=== PATIENT | male | born 1950 | race Caucasian/White ===

== ENCOUNTER 2024-07-09 06:08 | Day surgery (SDC) | payer MEDICARE, OTHER, SELFPAY ==
[2024-07-09] VITALS (17 sets, daily range): BP systolic 99–147; BP diastolic 57–91; PULSE 56–70; RESP 16–23; TEMP 36.1–37.1; O2SAT 96–99; BMI 29.7
--- OUTSIDE RECORDS SUMMARY | 2024-07-09 06:12 | XMS_ITS | Clinical Summary ---
Author Organization [facility] Address [place], [place] [address] Care Team Providers Care Plating Operator Name Role Phone Pcp, No Primary Care Provider Unavailabl e Allergies No known active allergies Medications Medication Sig Dispensed Refills Start Date End Date Status multivit-minerals /folic acid (ADULT ONE DAILY MULTIVITAMIN ORAL) Take 1 Tab by mouth once daily. Active glucosamine/msm/c hondroitin A (GLUCOSAMINE-WAI DR-MSM ORAL) Take 2 Tabs by mouth once daily. Glucosamine 750 Active acetaminophen (TYLENOL EXTRA STRGTH) 500 mg tabletIndications :Status post total replacement of left hip Take 2 tablets by mouth 3 times daily. Max acetaminophen dose: 4000mg in 24 hrs. 100 tablet 1 04/20/2020 Active creatine, bulk, 100 % powd As directed. Active MAGNESIUM ASPARTATE HCL ORAL Take by mouth. Active polyethylene glycol-electrolyt e (GOLYTELY) 236-22.74-6.74 -5.86 gram suspensionIndicat ions:Encounter for screening colonoscopy Drink 2 liters the day before colonoscopy and 2 liters 6 hours before colonoscopy appointment 4000 mL 04/07/2024 4 Discontinu ed(*Med complete/R egimen complete/L evel of care change) Active Problems Problem Noted Date Diagnosed Date Arthritis of right hip 04/06/2024 Overview (04/06/2024): March 2024: right hip ultrasound guided cortisone injection. History of coronary artery bypass graft 03/15/20 Overview (03/15/2024): 1993: reported 7 vessel CABG in [place]. No symptoms since. Declines statin. 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 Primary osteoarthritis of left hip 04/19/2020 Encounters Date Type Department Care Team Description 07/02/2024 Orders Only [facility] [place] [place] [address] Uli Dowling MD 2 scans: (2-Ord) [facility]D-EKG-06/30/24 06/30/2024 3:30 PM CDT Office Visit [facility] [place] [facility] [place] [address] Uli Dowling MD Preoperative Exam (DOS: 07/09/2024/RIGHT Hip Replacement/[facility]/Dr Lanette Espinal) 06/30/2024 Travel 04/24/2024 2:40 PM CDT Office Visit [facility] [place] [facility] [place] [address] Uli Dowling MD Musculoskeletal Problem (Follow-up RIGHT Hip injection/Groin pain/Did not help at all) 04/24/2024 Travel 04/21/[address] [place] [address] Uli Dowling MD Questions (hip injection) 04/15/2024 11:30 AM CDT Office Visit [address] [place] [address] Mason Virgen MD Procedure (colonoscopy) 04/15/2024 Travel 04/15/[address] [address] Mason Virgen MD Appointment 04/09/[address] [address] Mason Virgen MD Appointment Reminder (Colonoscopy) from Last 3 Months Immunizations Name Administration Dates Next Due COVID-19 vaccine (Conergy NTNewsWhip 30mcg/0.3mL) MALKA LUU 10/20/2021,12/23/2020,12/02/2020 Influenza, High-dose Quadriv alent Inactivated 07/29/2021 Family History Medical History Relation Name Comments No Known Problems Daughter 1 No Known Problems Daughter 2 Heart Disease Father Other Father broken hip x2 Diabetes Maternal Grandfather Diabetes Maternal Grandmother Heart Disease Mother Diabetes Sister 1 Hui Diabetes Sister 2 Orquidea Diabetes Sister 3 Rosalinda Heart Disease Sister 3 Rosalinda Relation Name Status Comments Daughter 1 Alive Daughter 2 Alive Father (Age 89) Maternal Grandfather Maternal Grandmother Mother Paternal Grandfather Paternal Grandmother Sister 1 Hui Alive Sister 2 Orquidea Alive Sister 3 Rosalinda Alive Social History Tobacco Use Types Packs/Day Years Used Date Smoking Tobacco: Never Smokeless Tobacco: Never Tobacco Cessation:Counseling Given: Yes Alcohol Use Standard Drinks/Week Comments Not Currently 0 (1 standard drink = 0.6 oz pur e alcohol) none for 13 years PHQ-2 Answer Date Recorded PHQ-2 TOTAL SCORE 0 03/14/2024 Social Connections Answer Date Recorded Frequency of Communication with Friends and Fami ly 0 03/14/2024 Financial Resource Strain Answer Date R ecorded Difficulty of Paying Living Expenses 3 03/14/2024 Difficulty of Paying Living Expenses Not on file 03/14/2024 Food Insecurity Answer Date Recorded Worried About Running Out of Food in the Last Ye ar 1 03/14/2024 Transportation Needs Answer Date Record ed Lack of Transportation (Medical) 1 03/14/2024 Housing Stability Answer Date Recorded Unable to Pay for Housing in the Last Year 1 03/14/2024 Sex and Gender Information Value Date Recorded Sex Assigned at Not on file Gender Identity Not on file Sexual Orientation Not on file Obstetrics History Last Filed Vital Signs Vital Sign Reading Time Taken Comments Blood Pressure 133/70 06/30/2024 3:37 PM CDT Pulse 74 06/30/2024 3:37 PM CDT Temperature 36.4 ??C (97.5 ??F) 04/04/2024 9:01 AM CD T Respiratory Rate 16 04/15/2024 12:35 PM CDT Oxygen Saturation 98% 06/30/2024 3:37 PM CDT Inhaled Oxygen Concentration - - Weight 85 kg (187 lb 6.4 oz) 06/30/2024 3:37 PM CDT Height 168.9 cm (5' 6.5) 06/30/2024 3:37 PM CDT Body Mass Index 29.79 06/30/2024 3:37 PM CDT Plan of Treatment Health Maintenance Due Date Last Done Comments Tdap 1962 Tetanus booster 1971 Zoster (shingles) series for age 50+ (1 of 2) 2001 Pneumococcal series for age 65+ (1 of 1 - PCV) 2016 COVID-19 vaccine series ( season) 2024 10/20/2021, 12/23/2020, 12/02/2020 Influenza for age 65+ 06/01/2024 07/29/2021 Depression screening for age 12+ 03/14/2025 03/14/2024, 03/14/2024, 03/14/2024, Additional history exists Medicare Wellness for age 65+ 03/15/2025 03/14/2024 BMI (ht and wt on same day) for age 18+ 06/30/2025 06/30/2024, 03/14/2024, 04/07/2020 Lipids for age 45-75 03/14/2029 03/14/2024, 04/07/20 Colonoscopy through age 75 04/15/203404/15, 04/15/2024, 04/15/2024, Additional history exists Hepatitis C screening for ag e 18-79 Completed 04/07/2020 Medical Devices Implanted Type Area Acid Recovery Operator Device Identifier Shelf Expiration Date Model / Serial / Lot [id number] - [id number] Implanted:Qty: 1 on 04/19/2020 by Volodymyr Sandy MD at [facility] Total Joint Left: Hip [employer] 12/18/2024 [id number] / / [id number] Description:hex Dome hole pl ug L351-96-18h - [id number] Implanted:Qty: 1 on 04/19/2020 by Volodymyr Sandy MD at [facility] Total Joint Left: Hip [employer] 12/02/2023 702-11-56 F / / [id number] Description:trident II Clust erhole WISEMAN Acetabular Shell [id number] - [id number] Implanted:Qty: 1 on 04/19/2020 by Volodymyr Sandy MD at [facility] Total Joint Left: Hip [employer] 10/20/2024 623-00-36 F / / [id number] Description:Trident x3 o deg ree polyethylene insert [id number] - [id number] Implanted:Qty: 1 on 04/19/2020 by Volodymyr Sandy MD at [facility] Total Joint Left: Hip [employer] 11/29/2024 [id number] / / [id number] Description:Accolade II 127d egree Neck Angle Hip Stem Z9216-4-639 - [id number] Implanted:Qty: 1 on 04/19/2020 by Volodymyr Sandy MD at [facility] Total Joint Left: Hip [employer] 03/18/2025 6570-0-13 6 / / [id number] Description:Biolox delta cer amic V40 Femoral head Explanted Type Area Acid Recovery Operator Device Identifier Shelf Expiration Date Model / Serial / Lot Pin Bradley Threaded [id number] [id number] William - [id number] Explanted:Qty: 1 on 04/19/2020 by Volodymyr Sandy MD at [facility] Total Joint Left: Hip [employer] 04/19/2020 261-10-04 # / / NA Procedures Procedure Name Priority Date/Time Associated Diagnosis Comments EKG 12 LEAD Routine 07/02/2024 3:10 PM CDT Preoperative examination History of coronary artery bypass graft MD READING EKG - NO CHARGE, COMP ONLY Routine 07/02/2024 3:08 PM CDT Preoperative examination History of coronary artery bypass graft HEMOGLOBIN Routine 06/30/2024 4:38 PM CDT Preoperative examination PATH TISSUE EXAM Routine 04/15/2024 12:1 2 PM CDT Screen for colon cancer Polyp of colon, unspecified part of colon, unspecified type Diverticulosis of large intestine without hemorrhage COLONOSCOPY SCREENING Routine 04/15/2024 11:23 AM CDT Screen for colon cancer COLONOSCOPY 04/15/2024 10:57 AM CDT LIPID PANEL W REFLEX MEASURED LDL Routine 03/14/2024 10:59 AM CDT Screening cholesterol level ANTI HCV Routine 04/07/2020 10:55 AM CDT Encounter for hepatitis C screening test for low risk patient from Last 3 Months or Most Recently Relevant to Health Maintenance Results * EKG 12 LEAD (07/02/2024 3:10 PM CDT) Uli Dowling MD EKG ORD * MD READING EKG - NO CHARGE, COMP ONLY (07/02/2024 3:08 PM CDT) Uli Dowling MD PB - PROVIDER DANILO DINGS * HEMOGLOBIN (06/30/2024 4:38 PM CDT) HEMOGLOBIN 14.7 13.2 - 17.1 g/dL [facility] Blood BLOOD SPECIMEN / Unknown 06/30/2024 4:38 PM CDT 06/30/2024 4:39 PM CDT Uli Dowling MD HEMATOLOGY [employer] [facility] [address] [place] [address], [facility] [address] [place] [address] * PATH TISSUE EXAM (04/15/2024 12:12 PM CDT) Case Report Pathology Report ?Case: [id number] ? Authorizing Provider: ??Mason Virgen MD ?? Collected: ? 04/15/2024 1212 ? Ordering Location: ? [facility] ?? Received: ?04/15/2024 1605 ? Clinic ? Pathologist: ? Aryan Muñoz MD ? Specimen: ?Descending Colon Polyp ? 04/18/2024 4:57 PM CDT [facility] Final Diagnosis A) COLON, DESCENDING, POLYPECTOMY: 1. Hyperplastic polyp 04/18/2024 4:57 PM CDT [facility] Clinical Information Screening colonoscopy. 04/18/2024 4:57 PM CDT [facility] Gross Description A) Received in formalin is a narvaez mucosal fragment measuring 2 mm in greatest dimension, which is entirely submitted in one cassette. It is labeled with the patient's name and designated descending colon polyp. Eron Cordero 04/16/2024 10:10 AM 04/18/2024 4:57 PM CDT [facility] Microscopic Description The final diagnosis is based on microscopic examination of appropriate sections of all specimens. Deeper levels were examined on block A1. 04/18/2024 4:57 PM CDT [facility] Additional Information Interpreted at [facility], Central Laboratory - [address] [address] 04/18/2024 4:57 PM CDT [facility] Other (Descending Colon Polyp) Non-Blood / Unknown 04/15/2024 12:12 PM CDT 04/15/2024 4:05 PM CDT Mason Virgen MD PATHOLOGY/[facility]OLOG [facility] [address] [place] [address], [place] * COLONOSCOPY (04/15/2024 10:57 AM CDT) 04/15/2024 10:5 7 AM CDT Narrative Transcriptions Mason Virgen MD - 04/15/2024 12:26 PM CDT Patient Name: Dc Hopkins Procedure Date: 04/15/2024 Gender: Male Date of : 1950 Admit Type: Outpatient Procedure: Colonoscopy Proceduralist: Mason Virgen MD , Montse Sotelo, RN (Nurse), Nay Cruz, RN (Nurse) Referring MD: Uli Dowling Indications/Pre-Op Diagnosis: Screening for colorectal malignant neoplasm, Last colonoscopy: November 2011 Medications: Fentanyl 100 micrograms IV, Midazolam 3 mgIV, The level of sedation administered wasmoderate Procedure Description: The patient had risks, benefits and alternatives explained to andgave informed consent. The patient had a stable cardiopulmonary status and judged an adequate candidate for conscious sedation. The endoscope [id number] was passed through the anus andadvanced to the cecum, identified by appendiceal orifice and ileocecal valve.The colonoscopy was performed without difficulty. The patient toleratedthe procedure well. The quality of the bowel preparation was good. The ileocecal valve, appendiceal orifice, and rectum were photographed. Complications: No immediate complications. Estimated Blood Loss & Specimen: Estimated blood loss: none. Specimen collected - Yes and sent to Laboratory Findings: The perianal and digital rectal examinations were normal. A 2 mm polyp was found in the descending colon. The polyp wassessile. The polyp was removed with a cold biopsy forceps. Resection and retrieval were complete. A few small-mouthed diverticula were found in the ascending colon. The exam was otherwise without abnormality. Impressions/Post-Op Diagnosis: - One 2 mm polyp in the descending colon, removed with a cold biopsy forceps. Resected and retrieved. - Diverticulosis in the ascending colon. - The examination was otherwise normal. Recommendation: - Patient has a contact number available for emergencies. The signsand symptoms of potential delayed complications were discussed with the patient. Return to normal activities tomorrow. Written discharge instructions were provided to the patient. - Resume previous diet. - Continue present medications. - Await pathology results. - Repeat colonoscopy date to be determined after pending pathology results are reviewed. Moderate Sedation: A time out was performed before the procedure. Moderate (conscious) sedation was administered by the endoscopy nurse and supervised bythe endoscopist. The following parameters were monitored: oxygensaturation, heart rate, blood pressure, EKG, CO2, respiratory rate, adequacy of pulmonary ventilation and reponse to care. Please refer to the patient's medical record flowsheets and nursing notes for moderate sedation details. Total physician intraservice time was 16 minutes. Mason Virgen MD 04/15/2024 12:26:36 PM This report has been signed electronically. Note Initiated On: 04/15/2024 10:57 AM Procedure Code(s): --- Professional --- 70851, Colonoscopy, flexible; with biopsy, single or multiple Diagnosis Code(s): --- Professional --- Z12.11, Encounter for screening formalignant neoplasm of colon D12.4, Benign neoplasm of descending colon K57.30, Diverticulosis of large intestine without perforation or abscess withoutbleeding CPT copyright 2022 [employer]. All rights reserved. The codes documented in this report are preliminary and upon microsoft dynamics ax consultant reviewmay be revised to meet current compliance requirements. Scope In: 11:58:51 AM Scope Withdrawal Time 0 hours 9 minutes 16 seconds Scope Out: 12:12:42 PM Mason Virgen MD PROCEDURE ORD * (ABNORMAL) LIPID PANEL W REFLEX MEASURED LDL (03/14/2024 10:59 AM CDT) CHOLESTEROL,TOTAL 235(H) 100 - 199 mg/dL 03/14/2024 7:56 PM CDT [facility] Comment: Cholesterol, Total Reference Ranges Desirable <200 mg/dL Borderline 200-239 mg/dL High >=240 mg/dL TRIGLYCERIDES 65 <150 mg/dL 03/14/2024 7:56 PM CDT [facility] TR[facility] LAB[facility] HDL CHOLESTEROL 71 >40 mg/dL 7:56 PM CDT [facility] NON-HDL CHOLESTEROL 164(H) <145 mg/dl 03/14/2024 7:56 PM CDT [facility] CHOL/HDL RATIO 3.31 <4.50 03/14/2024 7:56 PM CDT [facility] LDL CHOLESTEROL 151(H) <=130 mg/dL 03/14/2024 7:56 PM CDT [facility] VLDL CHOLESTEROL 13 <=30 mg/dL 03/14/2024 7:56 PM CDT [facility] TR[facility] PROVIDER ORDERED STATUS FASTING 03/14/2024 7:56 PM CDT [facility] Blood BLOOD SPECIMEN / Unknown Venipuncture / Unknown 03/14/2024 10:59 AM CDT 03/14/2024 10:59 AM CDT Uli Dowling MD CHEMISTRY [facility] [address] [place] [address], * ANTI HCV (04/07/2020 10:55 AM CDT) HEPATITIS C ANTIBODY Non-React selina Non-React selina 04/07/2020 6:13 PM CDT [facility] Comment:Antibodies to HCV no t detected; does not exclude the possibility of exposure to HCV. Blood BLOOD SPECIMEN / Unknown Venipuncture / Unknown 04/07/2020 10:55 AM CDT 04/07/2020 10:58 AM CDT Emmie FONSECA SEND OUTS Performing Organization Address City/[facility]/ZIP Co de Phone Number [facility] [address] [place] [address], from Last 3 Months or Most Recently Relevant to Health Maintenance Advance Directives * Full Code (Latest Code Status on File) Date Activated Date Inactivated Comments 04/19/2020 5:45 AM 04/20/2020 4:19 PM Care Teams Plating Operator Relationship Specialty Start Date End Date Pcp, No . PCP - General 06/18/19
[2024-07-09] MEDS: ACETAMINOPHEN 500 MG TABLET 1000 MG PO (06:30)
[2024-07-09] MEDS: OXYCODONE (CR) 10 MG TAB.ER.12H PO (06:30)
[2024-07-09] MEDS: SODIUM CHLORIDE 0.9 % (FLUSH) 10 ML SYRINGE IVF ×2 (06:55→07:15)
[2024-07-09] MEDS: LACTATED RINGERS 1000 ML 1,000 ML 100 ML IV (06:55)
--- NOTE | 2024-07-09 07:06 | W.PM.H&PU ---
History & Physical Update History & Physical Update H&P Reviewed and patient assessed: No changes noted
[2024-07-09] MEDS: fentaNYL 100 MCG/2 ML inj IVP (07:15)
[2024-07-09] MEDS: MIDAZOLAM HCL 1 MG/ML inj IVP (07:15)
--- NOTE | 2024-07-09 07:22 | SUR.PREOP ---
TIME?OUT:?0714 PT/RN/MDA?VERIFICATION?OF?SURGICAL?SITE,?PROCEDURE,?AND?CONSENT OBTAINED?PRIOR?TO?INVASIVE?PROCEDURE.
--- NOTE | 2024-07-09 07:30 | CRLHL7_ITS ---
For Patients: As a result of the Cures Act, medical imaging exams and procedure reports are released immediately into your electronic medical record. You may view this report before your referring provider. If you have questions, please contact your health care provider. Indication: Hip replacement surgery Technique: AP hip fluoroscopic image. Fluoroscopy time 37.4 seconds. Findings/Impression: Hardware from a right total hip arthroplasty is in satisfactory position. Dictated by Pernell Greer MD @ 07/09/2024 10:37:40 AM (Electronically Signed)
[2024-07-09] MEDS: CEFAZOLIN 2 GM in 0.9 % SODIUM CHLORIDE Mini-bag 100 ML IVPB (07:40)
[2024-07-09] MEDS: TRANEXAMIC ACID 100 MG/ML INJ 1000 MG IV (07:45)
--- NOTE | 2024-07-09 08:37 | W.PM.NB ---
Nerve Block Nerve Block Time Seen by Provider: 07:18 Date Seen: 07/09/24 Type of block requested by surgeon for post-operative analgesia: ALEX/LFCN Side: right Time out performed: Yes Verification of patient name: Yes Verification of date of : Yes Site marking: site marked Name of person performing procedure: Luis Alfredo Continuous monitoring Was continuous monitoring of O2 sat, B/P, food production associate, recorded every 15 minutes?: Yes Procedure Checklist: sterile prep, needles and gloves Ultrasound guided. Images saved: Yes Medications given in 5ml increments after negative aspiration: Marcaine %: 0.25 mL: 25 Precedex (mcg): 25 Patient tolerated procedure well: Yes Additional comments: Needle noted below psoas tendon needle noted adjacent to LFCN Block Charges Block Charge (with Pro Fee): Other Periph Nerve Block Use of Ultrasound Machine for Block: Yes- US Guidance/pain block
--- NOTE | 2024-07-09 08:38 | W.ANESCHARGE ---
Anesthesia Charges Start Date/Time Anesthesia Start Date: 07/09/24 Anesthesia Start Time: 07:31 Stop Date/Time Anesthesia Stop Date: 07/09/24 Anesthesia Stop Time: 09:55 Summary Extremes of Age - Over 70 or under 1: MDA
--- NOTE | 2024-07-09 09:09 | P.ORPRC_ITS ---
Procedure Note Date of procedure: 07/09/24 Procedure: PREOPERATIVE DIAGNOSIS: 1. Right hip osteoarthritis, severe, primary POSTOPERATIVE DIAGNOSIS: 1. Right hip osteoarthritis, severe, primary PROCEDURE: 1. Right total hip arthroplasty-anterior approach 2. 01775 - intraoperative fluoroscopy up to 1 hour. SURGEON: Domingo Espinal MD. SUPERVISOR CRACK OFF: Wojciech Trevino PA-C; DAHIANA Franz - Of note, a skilled certified surgical first assistant was critical for this case to aid in patient positioning, tissue retraction, limb manipulation/positioning, and closure. ANESTHESIA: General endotracheal anesthetic EBL: 200 mL IMPLANTS: DePuy J&J uncemented total hip [place] cup size 54, hole eliminator, +4 neutral liner Actis stem, standard offset, size 6 +5 mm ceramic 36 mm head COMPLICATIONS: None evident INDICATIONS: The patient is a pleasant 73-year-old male who has experienced severe right hip pain and difficulty bearing weight. Workup included x-rays which revealed severe osteoarthrosis in the hip. Given the deformity, the dysfunction, and the pain, as well as the failure of nonoperative management, recommendation was made for surgery. FINDINGS: Full-thickness chondral loss diffusely throughout the femoral head. To a lesser degree acetabular chondromalacia. Moderate effusion upon entering the joint. DESCRIPTION OF PROCEDURE: Following a thorough discussion of risks, benefits, and alternatives consent was obtained and the right hip was marked. The patient was brought to the operating room and placed supine on the operating table. Induction of anesthesia was undertaken. 2 g IV Ancef and 1 g tranexamic acid was administered within 1 hr of incision preoperatively. Proper time-out was performed identifying proper patient, site, procedure. The operative extremity was prepped and draped in the appropriate sterile fashion using ChloraPrep after the patient was positioned on the [place] table with head in neutral alignment and all bony prominences well padded. C-arm fluoroscopic imaging was utilized to confirm proper pelvis rotation and position, and to get true AP films of both the contralateral left, and the affected right hip. This is for comparison. A longitudinal incision was made starting approximately 1 cm distal to the ASIS, and 3-4 cm lateral. The incision was extended distally aiming toward the lateral border the patella. Sharp incision through skin and bovie cautery through the subcutaneous tissue allowed identification of the TFL fascia. This was sharply divided, and the fascia bluntly released from the muscle fibers as we dissected medial. Upon coming to the medial border, we were able to retract the TFL laterally, and penetrated the deeper fascia and identify the crossing circumflex vessels. These were ligated/cauterized. The rectus was elevated from the capsule, and retractors placed laterally and medially along the femoral neck to help with visualization of the capsule. We then performed an inverted T capsulotomy. The capsule was tagged for later repair. Retractors were placed inside the capsule. The femoral neck was visualized after releasing medially down to the lesser trochanter, along the saddle laterally, and up onto the acetabulum. The femoral neck cut was made in line with our preoperative templating. The head was removed in a single piece, and sized. We turned our attention to acetabular preparation. Initially, the labrum was resected from around the perimeter, the pulvinar was excised, allowing us to visualize the false wall. We started the reaming with a 43 mm reamer. This was medialized down to the true wall. We then enlarged our reamers sequentially up to one size less than the selected cup size. We trialed at the same size and found it to have an excellent fit. The selected cup was then opened, inserted, and impacted in line with the goal of 40? of abduction, and 20-25? of ante version. This was confirmed on C-arm fluoroscopic imaging to be in the appropriate/goal position. Once the cup was placed we placed a hole eliminator and a liner consistent with preop planning. Attention was turned to the femoral preparation. The limb was extended, externally rotated, and adducted. The posteromedial capsule was released, as retractors were placed allowing excellent access to the proximal femur. Initially a box feeder was followed by canal finder followed by various broaches. We broached sequentially up to the size noted above, found it to have excellent rotational control, and trialing various heads and necks, revealed that appropriate neck offset, and the above noted head size provided the greatest stability, and methodist of length, and offset. C-arm fluoroscopic i maging confirmed position of the stem, as well as leg lengths, which were compared with the pre procedure all fluoroscopic images. Trial implants were removed, the real femoral stem inserted, as was the appropriate head. After reducing, the leg was placed through range of motion and stability was confirmed anterior, posterior, and lateral. A 3 min Betadine soak was then performed, and thorough irrigation with normal saline followed. Closure of the capsule was performed with #1 PDS. Bleeding was confirmed to be controlled at this stage, and the TFL fascia was closed with #0 strata fix. S ubcutaneous, and subcuticular closure was performed with 2-0 Vicryl and 4-0 Monocryl, respectively. Dressings were applied, and the patient was awoken from anesthesia and transferred the PACU in stable condition. A skilled certified surgical first assistant was critical for this case to aid in patient positioning, tissue retraction, acetabular and proximal femoral exposure, limb manipulation/positioning, dislocation/relocation, patient safety, and closure. PLAN: 1. Weight bear as tolerated operative extremity. 2. 23 hr perioperative antibiotics. 3. Ice. 4. PT/OT consults for ambulation assistance/mobility education. 5. Social work consult for discharge planning. 6. DVT prophylaxis with at SCDs and Xarelto x5 days followed by aspirin for a total of 1 month..
--- NOTE | 2024-07-09 09:56 | W.ANESCHARGE ---
Anesthesia Charges Start Date/Time Anesthesia Start Date: 07/09/24 Anesthesia Start Time: 07:31 Stop Date/Time Anesthesia Stop Date: 07/09/24 Anesthesia Stop Time: 09:55
--- NOTE | 2024-07-09 10:01 | CRLHL7_ITS ---
For Patients: As a result of the Cures Act, medical imaging exams and procedure reports are released immediately into your electronic medical record. You may view this report before your referring provider. If you have questions, please contact your health care provider. Indication: POST OP RT NHAN Technique: AP pelvis and lateral view right hip Findings/Impression: Hardware from a right total hip arthroplasty is in satisfactory position. Bone alignment is normal. No sign of acute fracture. Postop changes are within normal limits. Dictated by Pernell Greer MD @ 07/09/2024 10:38:33 AM (Electronically Signed)
[2024-07-09] MEDS: OXYCODONE 5 MG TABLET PO (11:30)
--- NOTE | 2024-07-09 13:27 | SUR.PHASEII ---
Patient tolerating food and Pedialyte fluid, see Intake volume.
--- NOTE | 2024-07-09 13:28 | SUR.PHASEII ---
OT here at 1230, to PT after.
== END 2024-07-09 13:57 | disposition home or self-care (01) ==
LOC: OR 06:10
PROVIDERS: PCP Family Medicine; Visit Provider Orthopaedic Surgery Sports Medicine
PROC: (CPT 27130; principal; 2024-07-09 07:30)
DX: M16.11 Unilateral primary osteoarthritis, right hip (principal); G89.18 Other acute postprocedural pain; M94.251 Chondromalacia, right hip
CPT/HCPCS: 27130; 01214; 36415; 64450; 73501; 76000; 76942; 86850; 86900; 86901; 97161; 97165; 97535; 99100; A9270; C1776; J0665; J0690; J1100; J2250; J2405; J2704; J3010; J7120

== ENCOUNTER 2024-07-23 08:00 | Outpatient (RCR) | payer MEDICARE, OTHER, SELFPAY ==
--- NOTE | 2024-07-02 08:46 | PT.OPEX ---
PT [facility] Outpatient Eval PT [facility] Outpatient Eval Start: 07/02/24 07:45 Freq: Status: Active Protocol: Document 07/02/24 08:31 STELLA (Rec: 07/02/24 08:43 KLV [id number]) E-signed By Rita Pryor, PT Physical Therapy Outpatient Evaluation Insurance Information Recert Due Date 09/26/24 Insurance Name Medicare B,Other; See Comments Insurance Information/Comments [employer] Medical Diagnosis Right hip OA Pre and post-operative R NHAN DOS: 07/09/24 Treating Diagnosis Right hip pain, limited hip ROM, antalgic gait, muscle weakness Imaging Report Information Moderate to severe right hip OA Referring MD Teddy Strange Alie Irwin presents to PT with chronic R hip pain. Originally fractured right hip after falling from softball bleachers when he was 18 months old and treated with casting. Unsure if he was ever going to be able to walk. No surgery on this leg. Has been active and likes to ski, play pickleball and weight lift. Previous L NHAN 4 years ago. Now limited with activity and significant limp present as well as back pain present d/t compensations. X-ray indicating mod-severe OA and candidate for R NHAN. DOS: 07/09. Lives with in [place] home with 2 steps to enter. Navigated house very well following previous L NHAN including tub shower. PMH: CAD leading to CABG 1993, L NHAN 2019 Pain Comments 11/10 Date of Last Physician Visit 05/14/24 Date of Surgery (If applicable) 07/09/24 Current Work Status Retired Objective Other/Pertinent Objective SLR: - Hip ROM R: -flex 90 -ER 20 -IR 5 significant pain Functional Test Performed & Score Antalgic gait: significant out -toeing R with R tibial ER, limited stance time and limited terminal hip extension R Assessment Assessment/Impression Dc is a 73 year old male presenting to PT for preparation of upcoming R NHAN DOS 07/09/24 d/t severe OA. Session focused on education of anterior hip precautions, post-operative fall prevention precautions, transfers, gait with AD, stair negotiation, post-operative exercises. He is able to verbalize precautions and demonstrated independence with exercises, gait and stairs. He is appropriate to proceed with surgery at this time. Primary Functional Limitations Walking, standing, skiing, playing pickleball, stair negotiation, squatting Plan of Care Rehabilitation Potential Good Physical Therapy Goals By end of session today, patient will... Demonstrate appropriate gait pattern with 2WW to utilize post surgery for optimal safety when ambulating Demonstrate ability to negotiate stairs using appropriate stair pattern post surgery for optimal safety when at home and in community Verbalize understanding of most appropriate home set up including needed equipment for optimal safety and recovery post surgery Be independent in HEP program to show ability to perform appropriate exercises post surgery Treatment Plan/Direct Interventions Gait Training,Ice/Cold/ Vasopneumatic,Joint Mobilization,Manual Therapy, Neuromuscular Re-ed,Self-Care/ Home Management,Therapeutic Activities,Therapeutic Exercises Frequency/Duration Re-evaluate following surgery Patient Will Be Discharged From Therapy Completion of LTG(s), Independent w/HEP, Independently Progressing Evaluation Billing Untimed Code Treatment Minutes 15 Complexity Low Certification Information Initial Certification Date 07/02/24 Ending Certification Date 09/26/24 Provider Signature Required Yes Provider Signature Shows Agreement With POC & Medical Necessity Physician NPI Number Write NPI# Here Physician Comment/Change : Physician Signature & Date Requested Please Sign/Date Here
== END 2024-11-03 16:30 | disposition home or self-care (01) ==
PROVIDERS: PCP Physician Assistant Medical; Visit Provider Orthopaedic Surgery Sports Medicine
DX: M25.551 Pain in right hip (principal); M16.11 Unilateral primary osteoarthritis, right hip; Z96.641 Presence of right artificial hip joint; Z74.09 Other reduced mobility; R26.9 Unspecified abnormalities of gait and mobility; M62.81 Muscle weakness (generalized); Z51.89 Encounter for other specified aftercare
CPT/HCPCS: 97110; 97161; 97164; 97535; J0690; J1100; J2405; J2704; J3010

== ENCOUNTER 2025-08-29 11:30 | Emergency (ER) | payer MEDICARE, SELFPAY ==
[2025-08-29] VITALS (24 sets, daily range): BP systolic 136–157; BP diastolic 74–94; PULSE 56–83; RESP 10–19; TEMP 36.4; O2SAT 95–98; BMI 33.1
--- OUTSIDE RECORDS SUMMARY | 2025-08-29 11:32 | XMS_ITS | Clinical Summary ---
Author Organization [facility] Address [address] [place] [id number] Care Team Providers Care Integrity Analyst Name Role Phone Pcp, No Primary Care Provider Unavailabl e Allergies No known active allergies Medications multivit-mineral s/folic acid (ADULT ONE DAILY MULTIVITAMIN ORAL) Take 1 Tab by mouth once daily. Active glucosamine/msm/ chondroitin A (GLUCOSAMINE-CHO NDR-MSM ORAL) Take 2 Tabs by mouth once daily. Glucosamine 750 Active acetaminophen (TYLENOL EXTRA STRGTH) 500 mg tabletIndication s:Status post total replacement of left hip Take 2 tablets by mouth 3 times daily. Max acetaminophen dose: 4000mg in 24 hrs. 100 tablet 1 04/20/20 Active creatine, bulk, 100 % powd As directed. Active MAGNESIUM ASPARTATE HCL ORAL Take by mouth. Activ e Active Problems Problem Noted Date Diagnosed Date Arthritis of right hip 04/06/2024 Overview (04/06/2024): March 2024: right hip ultrasound guided cortisone injection. History of coronary artery bypass graft 03/15/20 Overview (03/15/2024): 1993: reported 7 vessel CABG in [place]. No symptoms since. Declines statin. Hypercholesterolemia 03/15/2024 Overview (03/15/2024): March 2024: ASCVD Risk Preflight Inspector: 20 % 10 Year risk after info entered, Patient declined recommended statin. Primary osteoarthritis of left hip 04/19/2020 Immunizations Immunization Administration Dates Next Due COVID-19 vaccine ([employer]ner[employer] NTech 30mcg/0.3mL) [facility] 10/20/2021,12/23/2020,12/02/2020 Influenza, High-dose Quadriv [...] 0 03/14/2024 Social Connections Answer Date Recorded Do you often feel lonely or isolated from those around you? 0 03/14/2024 Financial Resource Strain Answer Date R ecorded Difficulty of Paying Living Expenses 3 03/14/2024 Difficulty of Paying Living Expenses Not on file 03/14/2024 Food Insecurity Answer Date Recorded Do you worry your food will run out before you are able to buy more? 1 03/14/2024 Transportation Needs Answer Date Record ed Does lack of transportation keep you from medica l appointments? 1 03/14/2024 Does lack of transportation keep you from work, meetings or getting things that you need? 1 03/14/2024 Housing Stability Answer Date Recorded What is your housing situation today? 1 03/14/2024 Utilities Answer Date Recorded Do you have trouble paying f or utilities (for example, heat, electricity, water, phone)? 1 03/14/2024 Sex and Gender Information Value Date Recorded Sex Assigned at Not on file Legal Sex Male 10:41 AM CDT Gender Identity Not on file Sexual Orientation Not on file Obstetrics History Last Filed Vital Signs Vital Sign Reading Time Taken Comments Blood Pressure 133/70 06/30/2024 3:37 PM CDT Pulse 74 06/30/2024 3:37 PM CDT Temperature 36.4 C (97.5 F) 04/04/2024 9:01 AM CDT Respiratory Rate 16 04/15/2024 12:35 PM CDT Oxygen Saturation 98% 06/30/2024 3:37 PM CDT Inhaled Oxygen Concentration - - Weight 85 kg (187 lb 6.4 oz) 06/30/2024 3:37 PM CDT Height 168.9 cm (5' 6.5) 06/30/2024 3:37 PM CD T Body Mass Index 29.79 06/30/2024 3:37 PM CDT Plan of Treatment Health Maintenance Due Date Last Done Comments Tetanus booster 1962 Pneumococcal series for age 50+ (1 of 1 - PCV) 2001 RSV vaccine for adults or (1 - Risk 50-74 years 1-dose series) 2001 Zoster (shingles) series for age 50+ (1 of 2) 2001 Depression screening for age 12+ 03/14/2025 03/14/2024, 03/14/2024, 03/14/2024, Additional history exists Medicare Wellness for age 65+ 03/15/2025 03/14/2024 COVID-19 vaccine series ( season) 2025 10/20/2021, 12/23/2020, 12/02/2020 Influenza Vaccine (#1) 2025 BMI (ht and wt on same day) for age 18+ 06/30/2025 06/30/2024, 03/14/2024, 04/07/2020 Lipids for age 45-75 03/14/2029 03/14/2024, 04/07/20 20 Colonoscopy through age 75 04/15/203404/15, 04/15/2024, 04/15/2024, Additional history exists Hepatitis C screening for age 18-79 Completed 04/07/2020 Hepatitis B series for 19+ Aged Out N o longer eligible based on patient's age to complete this topic Medical Devices Implanted Type Area Forest Ranger Technician Device Identifier Shelf Expiration Date Model / Serial / Lot [id number] - [id number] Implanted:Qty: 1 on 04/19/2020 by Volodymyr Sandy MD at [facility] Total Joint Left: Hip [employer] 12/18/2024 [id number] / / [id number] Description:hex Dome hole pl ug [id number] - [id number] Implanted:Qty: 1 on 04/19/2020 by Volodymyr Sandy MD at [facility] Total Joint Left: Hip [employer] 12/02/2023 702-11-56 F / / [id number] Description:trident II Clust erhole WISEMAN Acetabular Shell [id number] - [id number] Implanted:Qty: 1 on 04/19/2020 by Volodymyr Sandy MD at [facility] Total Joint Left: Hip [employer] 10/20/2024 623-00-36 F / / [id number] Description:Trident x3 o deg ree polyethylene insert [id number] - [id number] Implanted:Qty: 1 on 04/19/2020 by Volodymyr Sandy MD at [facility] Total Joint Left: Hip [employer] 11/29/2024 [id number] / / [id number] Description:Accolade II 127d egree Neck Angle Hip Stem [id number] - [id number] Implanted:Qty: 1 on 04/19/2020 by Volodymyr Sandy MD at [facility] Total Joint Left: Hip [employer] 03/18/2025 [id number] 6 / / [id number] Description:Biolox delta cer amic V40 Femoral head Explanted Type Area Forest Ranger Technician Device Identifier Shelf Expiration Date Model / Serial / Lot Pin Bradley Threaded [id number] William - [id number] Explanted:Qty: 1 on 04/19/2020 by Volodymyr Sandy MD at [facility] Total Joint Left: Hip [employer] 04/19/2020 [id number] # / / NA Procedures Procedure Name Priority Date/Time Associated Diagnosis Comments COLONOSCOPY SCREENING Routine 04/15/2024 11:23 AM CDT Screen for colon cancer LIPID PANEL W REFLEX MEASURED LDL Routine 03/14/2024 10:59 AM CDT Screening cholesterol level ANTI HCV Routine 04/07/2020 10:55 AM CDT Encounter for hepatitis C screening test for low risk patient from Last 3 Months or Most Recently Relevant to Health Maintenance Results * COLONOSCOPY (04/15/2024 10:57 AM CDT) 04/15/2024 10:5 7 AM CDT Narrative Transcriptions Mason Virgen MD - 04/15/2024 12:26 PM CDT Patient Name: Dc Hopkins Procedure Date: 04/15/2024 Gender: Male Date of : 1950 Admit Type: Outpatient Procedure: Colonoscopy Proceduralist: Mason Virgen MD , Montse Soteol, RN (Nurse), Nay Cruz, THEODORE (Nurse) Referring MD: Uli Dowling Indications/Pre-Op Diagnosis: Screening for colorectal malignant neoplasm, Last colonoscopy: November 2011 Medications: Fentanyl 100 micrograms IV, Midazolam 3 mgIV, The level of sedation administered wasmoderate Procedure Description: The patient had risks, benefits and alternatives explained to andgave informed consent. The patient had a stable cardiopulmonary status and judged an adequate candidate for conscious sedation. The endoscope [id number] was passed through the anus andadvanced to [...] 10:57 AM Procedure Code(s): --- Professional --- 03466, Colonoscopy, flexible; with biopsy, single or multiple Diagnosis Code(s): --- Professional --- Z12.11, Encounter for screening formalignant neoplasm of colon D12.4, Benign neoplasm of descending colon K57.30, Diverticulosis of large intestine without perforation or abscess withoutbleeding CPT copyright 2022 [employer]. All rights reserved. The codes documented in this report are preliminary and upon silk weaver reviewmay be revised to meet current compliance requirements. Scope In: 11:58:51 AM Scope Withdrawal Time 0 hours 9 minutes 16 seconds Scope Out: 12:12:42 PM us Mason Virgen MD PROCEDURE ORD Final Res ult * (ABNORMAL) LIPID PANEL W REFLEX MEASURED LDL (03/14/2024 10:59 AM CDT) CHOLESTEROL,TOTAL 235(H) 100 - 199 mg/dL 03/14/2024 7:56 PM CDT [facility] Comment: Cholesterol, Total Reference Ranges Desirable <200 mg/dL Borderline 200-239 mg/dL High >=240 mg/dL TRIGLYCERIDES 65 <150 mg/dL 03/14/2024 7:56 PM CDT [facility] HDL CHOLESTEROL 71 >40 mg/dL 7:56 PM CDT [facility] NON-HDL CHOLESTEROL 164(H) <145 mg/dl 03/14/2024 7:56 PM CDT [facility] CHOL/HDL RATIO 3.31 <4.50 03/14/2024 7:56 PM CDT [facility] LDL CHOLESTEROL 151(H) <=130 mg/dL 03/14/2024 7:56 PM CDT [facility] VLDL CHOLESTEROL 13 <=30 mg/dL 03/14/2024 7:56 PM CDT [facility] PROVIDER ORDERED STATUS FASTING 03/14/2024 7:56 PM CDT [facility] Blood BLOOD SPECIMEN / Unknown Venipuncture / Unknown 03/14/2024 10:59 AM CDT 03/14/2024 10:59 AM CDT us Uli Dowling MD CHEMISTRY Final Res ult [facility] [address] [place] [address], [place] * ANTI HCV (04/07/2020 10:55 AM CDT) HEPATITIS C ANTIBODY Non-React selina Non-React selina 04/07/2020 6:13 PM CDT [facility] Comment:Antibodies to HCV no t detected; does not exclude the possibility of exposure to HCV. Blood BLOOD SPECIMEN / Unknown Venipuncture / Unknown 04/07/2020 10:55 AM CDT 04/07/2020 10:58 AM CDT us Emmie FONSECA SEND OUTS Final Result [facility] [address] [place] [address], from Last 3 Months or Most Recently Relevant to Health Maintenance Insurance MEDICARE PB ONLY MEDICARE PART B HB ONLY MEDICARE PART A HB ONLY [facility] INDEMNITY ONLY Advance Directives * Full Code (Latest Code Status on File) Date Activated Date Inactivated Comments 04/19/2020 5:45 AM 04/20/2020 4:19 PM Care Teams Integrity Analyst Relationship Specialty Start Date End Date Pcp, No . PCP - General 06/18/19
--- NOTE | 2025-08-29 11:55 | ED_ITS ---
HPI - General Adult General Date Seen: 08/29/25 Chief complaint: Chest Pain Stated complaint: Chest Pain Time Seen by Provider: 08/29/25 11:55 History of Present Illness HPI narrative: 75-year-old gentleman presenting to the ER this morning for chest pain. He has a past surgical history of total hip replacement (right hip in July 2024, left hip in November 2024). Per [facility] records he has a history of coronary disease with a coronary artery bypass graft. Per patient he did have a 7 vessel bypass done 35 years ago at a hospital in [facility]. He is not able to provide any further details about his coronary disease and in the past has not been able to get records from that hospital. He does not really have a wire drawer and has not had a stress test in about 15 years or so. He is not currently on any medications. No aspirin, blood pressure, cholesterol meds. He is generally healthy and well. He is fairly active and exercises and lift weights. Does lot of chores and walking around the house. He notes that for the past few weeks he has been having episodes of chest discomfort that often occur with steady exertion but tend not to occur when he is lifting weights. They typically occur when he is exercising then get better after 1 or 2 minutes of rest. This morning at around 11 he was shoveling snow when he started giving a more severe squeezing in his chest across both sides into both shoulders. He was not short of breath. No nausea. No palpitations. Stopped shoveling and the symptoms went away after minute or 2. This morning's episode of pain was much more significant than his previous episodes. Now that he is here in the ER is feeling better. He does not have any recent travel. He is a nonsmoker. No alcohol for more than 18 years. He is planning high ski trip with his family next week to go back to [place]. Related Data Home Medications ?Medication ?Instructions ?Recorded ?Confirmed creatine monohydrate ea PO 07/07/24 12/16/24 Allergies Allergy/AdvReac Type Severity Reaction Status Date / Time No Known Drug Allergies Allergy Verified 08/29/25 11:57 [facility] Medical History (Updated 12/16/24 @ 10:08 by Mariela Reina) Closed right hip fracture (~3) ?S72.001A - Fracture of unspecified part of neck of right femur, initial encounter for closed fracture (ICD-10) Bilateral primary osteoarthritis of hip ?M16.0 - Bilateral primary osteoarthritis of hip (ICD-10) Hypercholesteremia ?E78.00 - Pure hypercholesterolemia, unspecified (ICD-10) Coronary artery disease involving coronary bypass graft ?I25.810 - Atherosclerosis of coronary artery bypass graft(s) without angina pectoris (ICD-10) Surgical History (Updated 07/17/24 @ 13:01 by Wojciech Trevino PA-C) History of total right hip arthroplasty (07/09/24) ?Z96.641 - Presence of right artificial hip joint (ICD-10) History of total left hip replacement (2019) ?Z96.642 - Presence of left artificial hip joint (ICD-10) Hx of CABG (03/1994) ?Z95.1 - Presence of aortocoronary bypass graft (ICD-10) Family History (Updated 04/25/24 @ 09:08 by Lila Metz ~ [facility], [facility]) Maternal Grandmother Diabetes Maternal Grandfather Diabetes Sister Diabetes Father Heart disease, Onset Age: 89 Mother Heart disease Social History (Reviewed 07/17/24 @ 08:51 by Lila Metz ~ [facility], [facility]) Smoking Status: Never smoker Do you use any of these nicotine containing products: None Second hand tobacco smoke exposure: No How often do you have a drink containing alcohol: never How often do you have six or more drinks on one occasion: Never AUDIT-C Alcohol total score: 0 Non-prescribed substance use: denies use Caffeine: No Exam Narrative: Exam Narrative: Constitutional: Appears well-developed and well-nourished. Alert. Conversant. Non toxic. HENT: Head: Atraumatic. Nose: Nose normal. Mouth/Throat: Oral mucosa is clear and moist. no trismus. Pharynx normal. Tonsils symmetric. No tonsillar enlargement, erythema, or exudate. Eyes: Conjunctivae normal. EOM normal. Pupils equal, round, and reactive to light. No scleral icterus. Neck: Normal range of motion. Neck supple. No tracheal deviation present. N oJVD Cardiovascular: Normal rate, regular rhythm. No gallop. No friction rub. No murmur heard. Symmetric radial and PT artery pulses Pulmonary/Chest: Effort normal. No stridor. No respiratory distress. No wheezes. No rales. No rhonchi . No tenderness. Abdominal: Soft. Bowel sounds normal. No distension. No mass. No tenderness. No rebound. No guarding. Musculoskeletal: RUE: Normal range of motion. No tenderness. No deformity LUE: Normal range of motion. No tenderness. No deformity RLE: Normal range of motion. No edema. No tenderness. No deformity LLE: Normal range of motion. No edema. No tenderness. No deformity Lymph: No cervical adenopathy. Neurological: Alert and oriented to person, place, and time. Normal strength. CN II-VII intact. No sensory deficit. GCS eye subscore is 4. GCS verbal subscore is 5. GCS motor subscore is 6. Normal coordination Skin: Skin is warm and dry. No rash noted. No pallor. Normal capillary refill. Psychiatric: Normal mood. Normal affect. Const: Vital Signs, click to edit/add: Vital Signs - 24 hr 08/29/25 12:01 08/29/25 12:02 08/29/25 12:03 Temperature 97.6 F Pulse Rate 83 75 Pulse Rate [Pulse Oximeter] 72 Respiratory Rate 19 19 16 Blood Pressure 150/94 H Blood Pressure [Le ft Upper Arm] 148/86 H Pulse Oximetry 95 97 97 Oxygen Delivery Me thod Room Air 08/29/25 12:15 08/29/25 12:30 08/29/25 12:31 Temperature Pulse Rate 69 62 73 Pulse Rate [Pulse Oximeter] Respiratory Rate 18 17 12 Blood Pressure 157/85 H Blood Pressure [Le ft Upper Arm] Pulse Oximetry 96 96 95 Oxygen Delivery Me thod 08/29/25 12:48 08/29/25 13:00 08/29/25 13:02 Temperature Pulse Rate 61 65 Pulse Rate [Pulse Oximeter] Respiratory Rate 14 18 15 Blood Pressure 145/75 H Blood Pressure [Le ft Upper Arm] Pulse Oximetry 96 97 Oxygen Delivery Me thod Course Vital Signs Vital signs: Initial Vital Signs Pulse Rate 83 08/29/25 12:01 Respiratory Rate 19 08/29/25 12:01 Pulse Oximetry 95 08/29/25 12:01 Vital Signs Pulse Rate 83 08/29/25 12:01 Respiratory Rate 19 08/29/25 12:01 Pulse Oximetry 95 08/29/25 12:01 Temperature 97.6 F 08/29/25 12:03 Pulse Rate 65 08/29/25 13:02 Respiratory Rate 15 08/29/25 13:02 Blood Pressure 145/75 H 08/29/25 13:02 Pulse Oximetry 97 08/29/25 13:02 Oxygen Delivery Method Room Air 08/29/25 12:03 Medications Administered Medications: Discontinued Medications Generic Name Dose Route Start Last Admin Trade Name Andrei PRN Reason Stop Dose Admin Aspirin 324 mg 08/29/25 12:16 08/29/25 12:41 Aspirin 81 Mg Tab.Chew PO 08/29/25 12:17 324 mg ONCE ONE Administration Medical Decision Making MDM Narrative Medical decision making narrative: This patient presents to the ER today for evaluation of intermittent episodes of his exertional chest pain for the past couple of weeks, accommodating and is most severe episode of chest pain yet occurred late this morning when he was shoveling snow. His chest pain resolved with rest and has he arrived here in the ER he is chest pain-free. He remains chest pain free throughout his ER st ay. Differential was broad. No evidence of palpitations, syncope or other cardiac dysrhythmia. We considered possible ACS. Clinical history is highly suggestive for unstable angina with a new pattern of intermittent exertional chest pains. EKG has nonspecific changes but subtle less than [address] depression in the inferior leads. No ST-elevation to require immediate dairy and food laboratory assistant activation. Troponin is abnormal at 177, indicating myocardial damage, possibly NSTEMI. The patient is currently chest pain free so does not require nitro drip. He received aspirin 324 mg p.o. here and will start on heparin drip. Consult with Cardiology through [facility] patient accepted by Dr. HOLDEN pace to the cardiac service. EKG shows no evidence for pericarditis. Clinical presentation not suggestive of myocarditis. Chest x-ray shows no evidence for pneumonia, pneumothorax, pulmonary edema, pleural effusion, rib fracture, cardiomegaly. Mediastinum is normal on the x-ray. The patient has no ripping or tearing pain through to the back and has symmetric pulses on exam, no other acute neuro findings so I doubt aortic dissection. Risk of radiation and contrast exposure would outweigh the benefit of CT angiogram. We considered PE for this patient. overall very low risk, so would hold of on CTPA for now. No wheezing or bronchospasm to suggest COPD/asthma. No signs of chest wall cellulitis, shingles, injury. Discussed plan of care with the patient. He is agreeable to be transferred for cardiac workup. Will transfer by EMS. Transfer is delayed because of current snowstorm and EMS being busy with multiple 911 calls. At this point the patient is hemodynamically stable, chest pain-free, and does not have electrocardiographic criteria for dairy and food laboratory assistant activation so although it is undes irable, it is acceptable for him to await EMS transport. . Cannot transfer by air because of current weather conditions. Lab Data Labs: Lab Results 08/29/25 Range/Units 12:55 WBC 4.87 (4.50-11.00) K/uL RBC 4.99 (4.30-5.90) m/uL Hgb 15.4 (13.5-17.5) gm/dL Hct 46.7 (37.0-53.0) % MCV 94 (80-100) fL MCH 31 (26-34) pg MCHC 33 (32-36) gm/dL RDW Coeff of Shannon 13.2 (11.5-15.5) % Plt Count 240 (140-440) K/uL Neut % (Auto) 70.2 (42.0-72.0) % Lymph % (Auto) 21.6 (20-44) % [place] % (Auto) 7.0 (0.0-11.0) % Eos % (Auto) 0.6 (0.0-7.0) % Baso % (Auto) 0.4 (0.0-3.0) % Neut # (Auto) 3.42 (1.7-7.0) K/uL Lymph # (Auto) 1.05 (0.90-2.90) K/uL [place] # (Auto) 0.30 (0.00-0.90) K/UL Eos # (Auto) 0.03 (0.00-0.50) K/uL Baso # (Auto) 0.02 (0.00-0.30) K/uL Abs Immat Gran (auto) 0.01 (0.00-0.30) K/uL Imm/Tot Granulo (auto) 0.2 % Sodium 138 (135-149) mmol/L Potassium 4.3 (3.6-5.1) mmol/L Chloride 102 (96-114) mmol/L Carbon Dioxide 25 (20-32) mmol/L Anion Gap 11 (7-15) mEq/L BUN 24 (7-30) mg/dL Creatinine 1.5 (0.5-1.5) mg/dL Estimated Creat Clear 38.99 Estimated GFR 49 ml/min Glucose 125 H (60-115) mg/dL Calcium 9.2 (8.4-10.6) mg/dL Imaging Data Chest x-ray: Attestation: I have reviewed the pertinent imaging results. My impression: Sternotomy findings. surgical Clips. No acute infiltrate Radiologist's impression: IMPRESSION: Negative chest. ECG Data Attestation: I personally reviewed and interpreted this ECG as follows: Interpretation: Normal sinus rhythm Rate 71 [place] interval 176 Normal QRS axis Possible ST depression in 2, [address] segment elevation. Nonspecific T-wave changes. No definite ST elevation. Discharge Plan Discharge Prescriptions: No Action creatine monohydrate Powder PO Follow Up/Referrals: Uli Martines MD [Primary Care Provider, Family Practice]
--- NOTE | 2025-08-29 12:17 | CRLHL7_ITS ---
For Patients: As a result of the Century Cures Act, medical imaging exams and procedure reports are released immediately into your electronic medical record. You may view this report before your referring provider. If you have questions, please contact your health care provider. INDICATION: Chest pain TECHNIQUE: Two view chest. FINDINGS: The lungs are clear. The heart, mediastinum and pulmonary vessels are of normal size. There is no evidence of pleural disease. Median sternotomy. Elevation right hemidiaphragm. IMPRESSION: Negative chest. Dictated by Kayley Ceballos MD @ 08/29/2025 1:59:57 PM (Electronically Signed)
[2025-08-29] MEDS: ASPIRIN 81 MG TAB.CHEW 324 MG PO (12:41)
[2025-08-29 13:24] LABS: Hematocrit* 46.7 % (37.0-53.0); Hemoglobin* 15.4 gm/dL (13.5-17.5); Immature Granulocytes Abs Auto 0.01 K/uL (0.00-0.30); Immature Granulocytes Pct Auto 0.2 %; Lymphocytes Absolute Auto 1.05 K/uL (0.90-2.90); Mean Corpuscular HGB Conc 33 gm/dL (32-36); Mean Corpuscular Hemoglobin 31 pg (26-34); Mean Corpuscular Volume 94 fL (80-100); RDW Coefficient of Variation % 13.2 % (11.5-15.5); Red Blood Count* 4.99 m/uL (4.30-5.90); White Blood Count* 4.87 K/uL (4.50-11.00)
[2025-08-29 13:29] LABS: Chloride* 102 mmol/L (96-114); Potassium* 4.3 mmol/L (3.6-5.1); Sodium* 138 mmol/L (135-149)
[2025-08-29 13:32] LABS: Anion Gap 11 mEq/L (7-15); Blood Urea Nitrogen* 24 mg/dL (7-30); Calcium* 9.2 mg/dL (8.4-10.6); Carbon Dioxide* 25 mmol/L (20-32); Creatinine* 1.5 mg/dL (0.5-1.5); Est. Creatinine Clearance* 38.99; Estimated Glomerular Filt Rate 49 ml/min; Glucose* 125 mg/dL (60-115)
[2025-08-29 13:39] LABS: Slide Review Reflex No
[2025-08-29] MEDS: HEPARIN 5,000 UNIT/0.5 ML INJ 4000 UNIT IVP (14:07)
[2025-08-29] MEDS: HEPARIN 25,000 UNIT/500 ML BAG 20 UNIT IV ×2 (14:07→14:10)
[2025-08-29 14:38] LABS: INR 0.89 (0.91-1.10); Prothrombin Time 12.8 Seconds
== END 2025-08-29 15:46 | disposition short-term general hospital (02) ==
PROVIDERS: Emergency Provider Emergency Medicine; PCP Family Medicine
DX: R07.89 Other chest pain (principal)
CPT/HCPCS: 36415; 71046; 80048; 84484; 85025; 85610; 85730; 93005; 99284; 99285; A9270; J1644

== ENCOUNTER 2025-08-29 15:38 | Outpatient (CLI) | payer MEDICARE, SELFPAY | END 2025-08-29 15:39 | disposition home or self-care (01) | LOC: AMB 09-01 18:52 | PROVIDERS: PCP Family Medicine; Visit Provider Emergency Medicine | DX: I21.4 Non-ST elevation (NSTEMI) myocardial infarction (principal) | CPT/HCPCS: A0425; A0434 ==